=== PATIENT | female | born 1965 | race Caucasian/White ===

== ENCOUNTER 2019-02-14 16:43 | Emergency (ER) | payer OTHER ==
[~2019-02-14] VITALS: Ht 157.5 cm; Wt 59.0 kg
[2019-02-14 16:49] VITALS: BP 160/98
--- NOTE | 2019-02-14 17:00 | NUR ---
WAIT AT LOBBY.
--- NOTE | 2019-02-14 18:37 | NUR ---
PT AMBULATED TO ER BED 04
--- NOTE | 2019-02-14 18:55 | NUR ---
PT PRESENTS TO THE EMERGENCY DEPARTMENT WITH C/O ANXIETY. REPORTS RECENTLY RELOCATING FROM [place] TO [place] APPROX 2 WEEKS AGO. REPORTS RUNNING OUT OF CLONAZEPAM 0.5MG AND AMPHETAMINE SALTS ER 20MG LAST WEEK. MED HX: ADHD AND ANXIETY. BED LOCKED AND IN LOWEST POSITION; ERMD TO EVALUATE PT.
--- NOTE | 2019-02-14 19:07 | NUR ---
RECEIVED REPORT FROM AKILAH DE LA ROSA. TRANSFER OF CARE AT THIS TIME.
--- NOTE | 2019-02-14 19:09 | NUR ---
PT LYING IN BED COMFORTABLY WITH FRIEND AT BEDSIDE. PT REQUESTING WATER. SKIN PINK, WARM, DRY. BREATHING EVEN, UNLABORED.
--- NOTE | 2019-02-14 19:23 | NUR ---
Dr. Alejo examining patient.
[2019-02-14] MEDS ORDERED: ONDANSETRON 4 MG ODT PO ONE (20:10)
[2019-02-14] MEDS ORDERED: ALUMINUM HYD/MAG/SIMETHICONE 30 ML, DICYCLOMINE HCL LIQUID 20 MG, LIDOCAINE VISCOUS 2% ... PO ONE ×3 (20:10)
--- NOTE | 2019-02-14 20:15 | NUR ---
PT REQUESTING SOMETHING TO EAT AND DRINK. CRACKERS AND JUICE PROVIDED. PT DENIES N/V AT THIS TIME. PT STATES "I DON'T FEEL NAUSEOUS RIGHT NOW BUT I MIGHT LATER". DR. VALLECILLO MADE AWARE. GI COCKTAIL AND ZOFRAN D/C'D.
--- NOTE | 2019-02-14 20:31 | NUR ---
LABS DRAWN AT BEDSIDE BY RN.
[2019-02-14 20:54] LABS: BASOPHILS # (AUTO) 0.1 K/uL (0.00-0.22); BASOPHILS % (AUTO) 1.1 % (0.0-2.0); EOSINOPHILS # (AUTO) 0.1 K/uL (0-0.4); EOSINOPHILS % (AUTO) 2.4 % (0.0-4.0); LYMPHOCYTES # (AUTO) 2.5 K/uL (2.5-16.5); LYMPHOCYTES % (AUTO) 40.7 % (20.5-51.1); MEAN CORPUSCULAR HEMOGLOBIN 31 pg (27-31); MEAN CORPUSCULAR HGB CONC 33 g/dL (33-37); MEAN CORPUSCULAR VOLUME 92.1 fL (80-94); MONOCYTES # (AUTO) 0.5 K/uL (0.8-1.0); MONOCYTES % (AUTO) 7.5 % (1.7-9.3); NEUTROPHILS % (AUTO) 48.3 % (42.2-75.2); PLATELET COUNT (AUTO) 248 K/uL (140-450); RED BLOOD CELL COUNT(AUTO) 4.89 MIL/uL (4.20-5.40); WHITE BLOOD COUNT (AUTO) 6.2 K/uL (4.8-10.8)
[2019-02-14 21:17] LABS: ANION GAP 10.9 (8-16); CARBON DIOXIDE 32.2 mmol/L (21-32); POTASSIUM 4.1 mmol/L (3.5-5.1)
[2019-02-14 21:31] LABS: ALBUMIN 3.9 g/dL (3.4-5.0); THYROID STIMULATING HORMONE 2.5 uIU/mL (0.34-3.74); TOTAL BILIRUBIN 0.3 mg/dL (0.0-1.0)
--- NOTE | 2019-02-14 22:00 | NUR ---
PT REQUESTING MORE FOOD AND DRINK. CRACKERS AND JUICE PROVIDED.
--- NOTE | 2019-02-14 22:15 | NUR ---
PT ASKING WHEN SHE CAN BE DISCHARGED. EXPLAINED THAT LABS ARE PENDING ERMD REVIEW.
[2019-02-14 22:41] VITALS: BP 169/95
[2019-02-15 00:13] LABS: APPEARANCE,URINE CLEAR (CLEAR); BILIRUBIN,URINE NEGATIVE (NEGATIVE); BLOOD, URINE NEGATIVE (NEGATIVE); COLOR,URINE YELLOW (YELLOW); LEUKOCYTE ESTERASE ,URINE NEGATIVE (NEGATIVE); NITRITE, URINE NEGATIVE (NEGATIVE); UGLUCOSE NEGATIVE (NEGATIVE)
== END 2019-02-14 22:41 | disposition home or self-care (01) ==
LOC: MED 16:43
DX: K29.70 Gastritis, unspecified, without bleeding (principal); F41.9 Anxiety disorder, unspecified; Z88.6 Allergy status to analgesic agent
CPT/HCPCS: 36415; 80053; 81003; 81025; 83690; 84443; 85025; 99283